=== PATIENT | male | born 1950 | race Asian ===

== ENCOUNTER 2018-08-17 12:33 | Emergency (ER) | payer OTHER ==
[2018-08-17] MEDS ORDERED: SODIUM CHLORIDE 1,000 ML IV SCH (12:45)
[2018-08-17 13:01] VITALS: TEMP 98.3; BMI 36.0
[2018-08-17 13:14] LABS: BASO % 1.3 % (0-2.0); EOS % 4.2 % (0-4.5); HEMATOCRIT 44.3 % (35.4-49); HEMOGLOBIN 14.7 GM/dL (11.7-16.9); LYMPH % 30.9 % (8-40); MCH 25.6 pg (25.7-33.7); MCHC 33.1 g/dl (32.0-35.9); MEAN CELL VOLUME 77.2 fl (80-96); MEAN PLT VOLUME 9.2 fl (7.5-11.1); MONO % 9.4 % (3.8-10.2); NEUT % 54.2 % (42.8-82.8); PLATELET COUNT 242 K/MM3 (134-434); RBC 5.73 M/mm3 (4.00-5.60); RDW 14.4 % (11.9-15.9); WHITE BLOOD COUNT 5.2 K/mm3 (4.0-10.0)
[2018-08-17] MEDS ORDERED: NICARDIPINE 25 MG in DEXTROSE 5%-WATER - 240 ML IVPB SCH (13:15)
[2018-08-17 13:28] LABS: PROTHROMBIN TIME (PATIENT) 11.8 SEC (9.7-13.0)
[2018-08-17 13:41] LABS: ALBUMIN 3.5 g/dl (3.4-5.0); ALK PHOS 52 U/L (45-117); ANION GAP 7 MMOL/L (8-16); BILIRUBIN,TOTAL 0.7 mg/dL (0.2-1); BLOOD UREA NITROGEN 13.7 mg/dL (7-18); CALCIUM 8.9 mg/dL (8.5-10.1); CHLORIDE 107 mmol/L (98-107); CHOLESTEROL 161 mg/dL (50-200); CO2 25 mmol/L (21-32); CREATININE 1.1 mg/dL (0.55-1.3); GLUCOSE,RANDOM 251 mg/dL (74-106); HDL CHOLESTEROL 46 mg/dL (40-60); POTASSIUM 4.2 mmol/L (3.5-5.1); SGOT/AST 12 U/L (15-37); SGPT/ALT 19 U/L (13-61); SODIUM 139 mmol/L (136-145); TOT PROT 7.8 g/dl (6.4-8.2); TRIGLYCERIDES 116 mg/dL (0-150)
[2018-08-17 13:54] VITALS: BP 197/95; PULSE 74
--- NOTE | 2018-08-17 13:58 | PDOC ---
Documentation entered by Kerry Haynes SCRIBE, acting as scribe for Tomasz Finley MD. Tomasz Finley MD: This documentation has been prepared by the [place] hoover Sammi, SCRIBE, under my direction and personally reviewed by me in its entirety. I confirm that the documentation accurately reflects all work, treatment, procedures, and medical decision making performed by me. History of Present Illness - General Stated Complaint: CVA/TIA Time Seen by Provider: 08/17/18 12:37 - History of Present Illness Initial Comments: 08/17/18 12:50 The patient is a 67 year old male, with a significant PMH of HTN, IDDM, HLD, on baby aspirin, who was BIBA to the emergency department for evaluation of stroke signs. The patient reports he went to sleep at 11pm last night and was at his baseline. He notes he woke up this morning and everything was "confusing." The patient's coworker at bedside states she called the patient at 11am this morning and noticed he was slurring his speech. The coworker went to check on the patient and found him on the ground prompting her to call 911. Pt denies weakness on either side of his body. Denies headache, cp, sob, fevers, chills, abd pain, N/V/D, abd pain, LE edema. 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 FS in the field 290, BP 210/110 per EMS. Past History - Past Medical History Allergies/Adverse Reactions: Allergies Allergy/AdvReac Type Severity Reaction Status Date / Time No Known Allergies Allergy Verified 08/17/18 12:49 Home Medications: Ambulatory Orders NK [No Known Home Medication] 08/17/18 Review of Systems - Review of Systems Comments:: 08/17/18 12:54 GENERAL/CONSTITUTIONAL: No fever or chills. No weakness. HEAD, EYES, EARS, NOSE AND THROAT: No change in vision. No ear pain or discharge. No sore throat. GASTROINTESTINAL: No nausea, vomiting, diarrhea or constipation. GENITOURINARY: No dysuria, frequency, or change in urination. CARDIOVASCULAR: No chest pain or shortness of breath. RESPIRATORY: No cough, wheezing, or hemoptysis. MUSCULOSKELETAL: No joint or muscle swelling or pain. No neck or back pain. SKIN: No rash NEUROLOGIC: (+)weakness (+)slurred speech ENDOCRINE: No increased thirst. No abnormal weight change. HEMATOLOGIC/LYMPHATIC: No anemia, easy bleeding, or history of blood clots. ALLERGIC/IMMUNOLOGIC: No hives or skin allergy. *Physical Exam - Vital Signs Last Vital Signs Temp Pulse Resp BP Pulse Ox 98.3 F 66 20 201/87 H 96 08/17/18 12:58 08/17/18 13:35 08/17/18 12:58 08/17/18 13:35 08/17/18 12:58 - Physical Exam Comments: 08/17/18 12:54 GENERAL: Awake, alert, oriented to name and hospital but states year is 1988, in no acute distress HEAD: No signs of trauma EYES: PERRLA, EOMI, sclera anicteric, conjunctiva clear ENT: +hearing impairment, nares patent, oropharynx clear without exudates. Moist mucosa NECK: Normal ROM, supple, no lymphadenopathy, JVD, or masses LUNGS: Breath sounds equal, clear to auscultation bilaterally. No wheezes, and no crackles HEART: Regular rate and rhythm, normal S1 and S2, no murmurs, rubs or gallops ABDOMEN: Soft, nontender, normoactive bowel sounds. No guarding, no rebound. No masses EXTREMITIES: Normal range of motion, no edema. No clubbing or cyanosis. No cords , erythema, or tenderness. WWP. BACK: No midline spinal tenderness in cervical/thoracic/lumbar region NEUROLOGICAL: (+)slurred speech (+)Right facial droop (+)R pronator drift (+)4/ 5 strength right upper extremity (+)4+ right lower extremity strength, normal sensation. Gait deferred. SKIN: Warm, Dry, normal turgor, no rashes or lesions noted. NIH Stroke Scale - Last Known Well Date/Time & Onset Date Last Known Well: 08/16/18 Time Last Known Well: 23:00 - Initial Evaluation Level of consciousness: Alert Ask patient the month and their age: Answers one correctly Ask patient to open & close eyes; make fist and let go: Obeys both correctly Best gaze (horizontal eye movement): Normal Visual field testing: No visual field loss Facial paresis (Show teeth/raise eyebrows/close eyes tight): Complete paralysis of one or both sides (Upper and lower face) Motor Function: Left Arm: Normal Motor Function: Right Arm: Some effort against gravity Motor Function: Left Leg: Normal (extends leg 30 degrees for 5 seconds without drift) Motor Function: Right Leg: Some effort against gravity Limb Ataxia: Untestable (Joint fused or limb amputated), explain: Sensory(Use pinprick test arms,legs,trunk,face/side to side): Normal Best language (Describe picture, name items, read sentences): Mild to moderate aphasia Dysarthria (read several words): Mild to moderate slurring of words Extinction and Inattention: No abnormality - Total Score NIH Stroke Scale Score: 10 Critical Care Time/MDM Note Total Critical Care Time: 80 Critical Care Statement: The care of this patient involved high complexity decision making to prevent further life threatening deterioration of the patient 's condition and/or to evaluate & treat vital organ system(s) failure or risk of failure. - Medical Decision Making Note: 08/17/18 13:[address] Monroy at [facility] for ER to ER transfer. 08/17/18 13:48 67yo M hx HTN, HL, IDDM, on ASA 81mg presents to the ED with slurred speech, R sided facial droop, RUE and RLE weakness since waking up this morning LKN 11pm when he went to bed Out of TPA window NIHSS 10 CTH with intraparanchymal bleed BP 200/100, HR 60s Cardene gtt started Case discussed with neuro fellow at [facility], pt accepted for transfer to Dr. Jeter Case discussed with ED attedning Dr. Sutton as well as pt is ED to ED transfer 08/17/18 13:52 EMS team transporting pt to [facility] *DC/Admit/Observation/Transfer Diagnosis at time of Disposition: Cerebrovascular accident (CVA), Spontaneous intraparenchymal intracranial hemorrhage, acute, Right sided weakness - Discharge Dispostion Disposition: TRANSFER ACUTE CARE/OTHER HOSP Condition at time of disposition: Guarded - Referrals - Patient Instructions - Post Discharge Activity - Attestations Physician Attestion: 08/17/18 14:00 I, Dr. Tomasz Finley MD, attest that this document has been prepared under my direction and personally reviewed by me in its entirety. I further attest, that it accurately reflects all work, treatment, procedures and medical decision -making performed by me.
--- NOTE | 2018-08-17 14:50 | EKG ---
Test Reason : Blood Pressure : / mmHG Vent. Rate : 068 BPM Atrial Rate : 068 BPM P-R Int : 126 ms QRS Dur : 096 ms QT Int : 394 ms P-R-T Axes : 043 -39 024 degrees QTc Int : 418 ms NORMAL SINUS RHYTHM LEFT AXIS DEVIATION VOLTAGE CRITERIA FOR LEFT VENTRICULAR HYPERTROPHY NONSPECIFIC ST ABNORMALITY ABNORMAL ECG NO PREVIOUS ECGS AVAILABLE Confirmed by SANJAY GRIFFIN MD ([id number]) on 08/17/2018 2:50:04 PM Referred By: Confirmed By:SANJAY GRIFFIN MD
== END 2018-08-17 14:01 | disposition short-term general hospital (02) ==
LOC: JER 12:33
DX: I61.8 Other nontraumatic intracerebral hemorrhage (principal); M62.81 Muscle weakness (generalized); I63.9 Cerebral infarction, unspecified; I10 Essential (primary) hypertension; E11.9 Type 2 diabetes mellitus without complications; E78.5 Hyperlipidemia, unspecified
CPT/HCPCS: 36415; 70450-TC; 71045-TC-FY; 72125-TC; 80053; 82465; 82550; 83718; 83721; 84478; 84484; 85025; 85610; 86850; 86900; 86901; 93005; 93010; 99285-25; J7030

== ENCOUNTER 2020-02-02 13:43 | Inpatient (IN) | payer OTHER ==
[2020-02-02] MEDS ORDERED: SODIUM CHLORIDE 1,000 ML IV SCH (14:00)
[2020-02-02 15:42] LABS: BASO % 0.8 % (0-2.0); EOS % 4.6 % (0-4.5); HEMATOCRIT 47.2 % (35.4-49); HEMOGLOBIN 15.5 GM/dL (11.7-16.9); LYMPH % 35.3 % (8-40); MCHC 32.8 g/dl (32.0-35.9); MEAN PLT VOLUME 9.8 fl (7.5-11.1); MONO % 11.2 % (3.8-10.2); NEUT % 48.1 % (42.8-82.8); PLATELET COUNT 235 K/MM3 (134-434); RDW 16.7 % (11.9-15.9)
[2020-02-02 15:48] LABS: INR 1.03 (0.83-1.09); PROTHROMBIN TIME (PATIENT) 12.7 SEC (9.7-13.0)
[2020-02-02 15:51] LABS: ACTIVATED PTT 31.1 SECONDS (25.2-36.5)
[2020-02-02 15:56] LABS: CHLORIDE 107 mmol/L (98-107); SODIUM 140 mmol/L (136-145)
[2020-02-02 15:58] LABS: CALCIUM 9.3 mg/dL (8.5-10.1)
[2020-02-02 15:59] LABS: ALBUMIN 3.6 g/dl (3.4-5.0); ANION GAP 6 MMOL/L (8-16); CO2 27 mmol/L (21-32); GLUCOSE,RANDOM 123 mg/dL (74-106)
[2020-02-02 16:01] LABS: CHOLESTEROL 166 mg/dL (50-200); TRIGLYCERIDES 96 mg/dL (0-150)
[2020-02-02 16:02] LABS: BILIRUBIN,TOTAL 0.9 mg/dL (0.2-1); CREATININE 1.1 mg/dL (0.55-1.3); LDL CHOLESTEROL (ONLY SJRH) 97 mg/dL (5-100); SGOT/AST 25 U/L (15-37); SGPT/ALT 29 U/L (13-61); TOT PROT 7.9 g/dl (6.4-8.2)
[2020-02-02 16:04] LABS: HDL CHOLESTEROL 53 mg/dL (40-60)
[2020-02-02 16:05] LABS: ALK PHOS 51 U/L (45-117)
[2020-02-02 17:01] LABS: EPI CELLS 24 /uL (0-25.1); HYALINE CASTS 2 /uL (0-3.1); PH,URINE 5.5 (5.0-8.0); URINE APPEARANCE CLEAR; URINE BACTERIA 24 /uL (0-1359); URINE BILIRUBIN NEGATIVE (NEGATIVE); URINE COLOR YELLOW; URINE GLUCOSE (UA) 3+ (NEGATIVE); URINE KETONE TRACE (NEGATIVE); URINE LEUK ESTERASE NEGATIVE (NEGATIVE); URINE NITRITE NEGATIVE (NEGATIVE); URINE PROTEIN 2+ (NEGATIVE); URINE RBC 5 /uL (0-23.9); URINE WBC 43 /uL (0-25.8)
[2020-02-02] MEDS ORDERED: ASPIRIN COATED 81 MG TABLET.EC ONE (21:04)
[2020-02-02] MEDS ORDERED: LOSARTAN POTASSIUM 50 MG TABLET ONE (21:05)
[2020-02-02] MEDS: ASPIRIN 81 MG CHEWABLE TABLETS PO SCH (21:07)
[2020-02-02] MEDS: LOSARTAN POTASSIUM 50 MG TABLET PO SCH (21:07)
[2020-02-02] MEDS ORDERED: ATORVASTATIN CA 20 MG TABLET (FP) PO SCH (22:00)
[2020-02-02] MEDS ORDERED: GABAPENTIN 300 MG CAPSULE PO SCH (22:00)
[2020-02-02] MEDS ORDERED: ATORVASTATIN CA 20 MG TABLET (FP) ONE (22:09)
[2020-02-02] MEDS ORDERED: GABAPENTIN 100 MG CAPSULE ONE (22:10)
[2020-02-02] MEDS: GABAPENTIN 300 MG CAPSULE PO SCH (23:06)
[2020-02-02] MEDS: INSULIN SLIDING SCALE (NOVOLOG) 1 VIAL SQ SCH (23:06)
[2020-02-02] MEDS: TIZANIDINE HCL 4 MG TABLET PO SCH (23:06)
[2020-02-03 01:26] VITALS: BMI 27.0
[2020-02-03 06:41] LABS: BASO % 1.1 % (0-2.0); EOS % 6.2 % (0-4.5); HEMATOCRIT 44.2 % (35.4-49); HEMOGLOBIN 14.6 GM/dL (11.7-16.9); LYMPH % 40.8 % (8-40); MCHC 32.9 g/dl (32.0-35.9); MEAN CELL VOLUME 75.9 fl (80-96); MEAN PLT VOLUME 9.4 fl (7.5-11.1); MONO % 10.6 % (3.8-10.2); NEUT % 41.3 % (42.8-82.8); PLATELET COUNT 233 K/MM3 (134-434); RBC 5.82 M/mm3 (4.00-5.60); RDW 16.4 % (11.9-15.9); WHITE BLOOD COUNT 6.1 K/mm3 (4.0-10.0)
[2020-02-03] MEDS: INSULIN SLIDING SCALE (NOVOLOG) 1 VIAL SQ SCH ×4 (06:47→21:46)
[2020-02-03 07:03] LABS: CALCIUM 8.5 mg/dL (8.5-10.1)
[2020-02-03 07:04] LABS: ALBUMIN 3.1 g/dl (3.4-5.0); MAGNESIUM 1.6 mg/dL (1.8-2.4)
[2020-02-03 07:06] LABS: PHOSPHOROUS 3.4 mg/dL (2.5-4.9)
[2020-02-03 07:07] LABS: CREATININE 1.1 mg/dL (0.55-1.3)
[2020-02-03 07:08] LABS: BILIRUBIN,TOTAL 1.5 mg/dL (0.2-1); TOT PROT 6.7 g/dl (6.4-8.2)
[2020-02-03] MEDS: ENOXAPARIN NA (PORCINE) 40 MG/0.4 ML DISP.SYRIN SQ SCH (09:31)
[2020-02-03] MEDS: LOSARTAN POTASSIUM 50 MG TABLET PO SCH (09:31)
[2020-02-03] MEDS: ASPIRIN 81 MG CHEWABLE TABLETS PO SCH (09:31)
[2020-02-03] MEDS ORDERED: PT OWN MED DRAWER 7, Y5N ONE ×2 (12:01→21:45)
[2020-02-03] MEDS ORDERED: MAGNESIUM SULF 50% (8.12 MEQ/2 ML-1 GM VIAL) IVPB ONE (14:17)
[2020-02-03] MEDS: amLODIPine BESYLATE 5 MG TABLET (FP) PO SCH (15:19)
[2020-02-03] MEDS: GABAPENTIN 300 MG CAPSULE PO SCH (21:46)
[2020-02-03] MEDS: ATORVASTATIN CA 80 MG TABLET (FP) PO SCH (21:46)
[2020-02-03] MEDS: TIZANIDINE HCL 4 MG TABLET PO SCH (21:46)
[2020-02-04] MEDS: INSULIN SLIDING SCALE (NOVOLOG) 1 VIAL SQ SCH ×5 (06:15→21:56)
[2020-02-04] MEDS: LOSARTAN POTASSIUM 50 MG TABLET PO SCH (09:16)
[2020-02-04] MEDS: ASPIRIN 81 MG CHEWABLE TABLETS PO SCH (09:16)
[2020-02-04] MEDS: amLODIPine BESYLATE 5 MG TABLET (FP) PO SCH (09:17)
[2020-02-04] MEDS: ENOXAPARIN NA (PORCINE) 40 MG/0.4 ML DISP.SYRIN SQ SCH (09:17)
[2020-02-04] MEDS: CLOPIDOGREL BISULFATE 75 MG TABLET (FP) PO SCH (12:24)
[2020-02-04] MEDS: metFORMIN HCL 500 MG TABLET (FP) PO SCH ×2 (12:24→17:32)
[2020-02-04] MEDS: ATORVASTATIN CA 80 MG TABLET (FP) PO SCH (21:44)
[2020-02-04] MEDS: GABAPENTIN 300 MG CAPSULE PO SCH (21:44)
[2020-02-04] MEDS: TIZANIDINE HCL 4 MG TABLET PO SCH (21:53)
[2020-02-05] MEDS: INSULIN SLIDING SCALE (NOVOLOG) 1 VIAL SQ SCH ×4 (06:49→21:49)
[2020-02-05] MEDS: metFORMIN HCL 500 MG TABLET (FP) PO SCH ×2 (06:50→16:45)
[2020-02-05] MEDS: amLODIPine BESYLATE 5 MG TABLET (FP) PO SCH (09:06)
[2020-02-05] MEDS: CLOPIDOGREL BISULFATE 75 MG TABLET (FP) PO SCH (09:06)
[2020-02-05] MEDS: ENOXAPARIN NA (PORCINE) 40 MG/0.4 ML DISP.SYRIN SQ SCH (09:06)
[2020-02-05] MEDS: LOSARTAN POTASSIUM 50 MG TABLET PO SCH (09:07)
[2020-02-05] MEDS: ATORVASTATIN CA 80 MG TABLET (FP) PO SCH (21:48)
[2020-02-05] MEDS: GABAPENTIN 300 MG CAPSULE PO SCH (21:48)
[2020-02-05] MEDS: TIZANIDINE HCL 4 MG TABLET PO SCH (21:49)
[2020-02-05] MEDS ORDERED: amLODIPine BESYLATE 5 MG TABLET (FP) PO ONE (23:15)
[2020-02-06] MEDS: metFORMIN HCL 500 MG TABLET (FP) PO SCH (06:48)
[2020-02-06] MEDS: INSULIN SLIDING SCALE (NOVOLOG) 1 VIAL SQ SCH ×2 (06:48→10:52)
[2020-02-06] MEDS: CLOPIDOGREL BISULFATE 75 MG TABLET (FP) PO SCH (09:00)
[2020-02-06] MEDS: LOSARTAN POTASSIUM 50 MG TABLET PO SCH (09:00)
[2020-02-06] MEDS: ENOXAPARIN NA (PORCINE) 40 MG/0.4 ML DISP.SYRIN SQ SCH (09:00)
[2020-02-06 09:39] VITALS: BP 152/94; PULSE 88; TEMP 98
[2020-02-06] MEDS ORDERED: amLODIPine BESYLATE 10 MG TABLET (FP) PO SCH (10:00)
== END 2020-02-06 14:33 | DRG 65 ==
LOC: JER 13:43 → JERBED 14:42 → J4S 22:07
PROVIDERS: ADMIT Internal Medicine; ATTEND Family Medicine
DX: I63.9 Cerebral infarction, unspecified (principal); I69.351 Hemiplegia and hemiparesis following cerebral infarction affecting right dominant side; J98.11 Atelectasis; R29.702 NIHSS score 2; E11.9 Type 2 diabetes mellitus without complications; I10 Essential (primary) hypertension; E66.9 Obesity, unspecified; Z68.27 Body mass index [BMI] 27.0-27.9, adult; E78.5 Hyperlipidemia, unspecified; H91.90 Unspecified hearing loss, unspecified ear; M47.816 Spondylosis without myelopathy or radiculopathy, lumbar region; M50.30 Other cervical disc degeneration, unspecified cervical region; W18.30XA Fall on same level, unspecified, initial encounter; Y92.89 Other specified places as the place of occurrence of the external cause; Y99.8 Other external cause status
CPT/HCPCS: 36415; 70450-TC; 70551-TC; 71045-TC-FY; 72141-TC; 80053; 80061; 81003; 82550; 82962; 83036; 83721; 83735; 84100; 84484; 85025; 85610; 85730; 86850; 86900; 86901; 93005; 93010; 93880-TC; 97116-GP; 97161-GP; 99285-25; C9803; U0003

== ENCOUNTER 2020-06-26 14:04 | Emergency (ER) | payer OTHER ==
[2020-06-26 14:12] VITALS: TEMP 98; BMI 31.3
[2020-06-26] MEDS ORDERED: LOSARTAN POTASSIUM 50 MG TABLET PO ONE (14:46)
[2020-06-26] MEDS ORDERED: METOCLOPRAMIDE HCL INJECTION 10 MG/2 ML VIAL IVPB ONE (14:46)
[2020-06-26] MEDS ORDERED: ACETAMINOPHEN 1000 MG/100 ML VIAL (NON FORMULARY) IVPB ONE (14:46)
[2020-06-26 14:59] LABS: BASO % 1.7 % (0-2.0); EOS % 2.6 % (0-4.5); HEMATOCRIT 39.7 % (35.4-49); HEMOGLOBIN 13.1 GM/dL (11.7-16.9); MCH 27.1 pg (25.7-33.7); MEAN CELL VOLUME 82.1 fl (80-96); MEAN PLT VOLUME 9.6 fl (7.5-11.1); MONO % 10.6 % (3.8-10.2); NEUT % 44.1 % (42.8-82.8); PLATELET COUNT 229 K/MM3 (134-434); RBC 4.84 M/mm3 (4.00-5.60); RDW 14.1 % (11.9-15.9); WHITE BLOOD COUNT 6.6 K/mm3 (4.0-10.0)
[2020-06-26] MEDS ORDERED: LOSARTAN POTASSIUM 50 MG TABLET ONE (15:15)
[2020-06-26] MEDS ORDERED: ACETAMINOPHEN INJECTION 100 ML IVPB ONE (15:22)
[2020-06-26] MEDS ORDERED: METOCLOPRAMIDE HCL INJECTION 10 MG/2 ML VIAL ONE (15:22)
[2020-06-26 15:23] LABS: CHLORIDE 104 mmol/L (98-107); SODIUM 135 mmol/L (136-145)
[2020-06-26 15:24] LABS: ALBUMIN 3.2 g/dl (3.4-5.0); ANION GAP 4 MMOL/L (8-16); BLOOD UREA NITROGEN 20.1 mg/dL (7-18); CALCIUM 8.8 mg/dL (8.5-10.1); CO2 27 mmol/L (21-32)
[2020-06-26 15:25] LABS: GLUCOSE,RANDOM 202 mg/dL (74-106)
[2020-06-26 15:28] LABS: CREATININE 1.1 mg/dL (0.55-1.3); SGOT/AST 35 U/L (15-37); SGPT/ALT 25 U/L (13-61)
[2020-06-26 15:29] LABS: BILIRUBIN,TOTAL 0.7 mg/dL (0.2-1); TOT PROT 7.3 g/dl (6.4-8.2)
[2020-06-26 15:30] LABS: ALK PHOS 52 U/L (45-117)
[2020-06-26 16:56] VITALS: BP 173/80; PULSE 57
[2020-06-26 17:23] LABS: PH,URINE 7.5 (5.0-8.0); URINE APPEARANCE CLEAR; URINE BILIRUBIN NEGATIVE (NEGATIVE); URINE COLOR YELLOW; URINE GLUCOSE (UA) NEGATIVE (NEGATIVE); URINE KETONE NEGATIVE (NEGATIVE); URINE LEUK ESTERASE NEGATIVE (NEGATIVE); URINE NITRITE NEGATIVE (NEGATIVE); URINE PROTEIN NEGATIVE (NEGATIVE); URINE UROBILINOGEN 0.2 mg/dL (0.2-1.0)
== END 2020-06-26 18:26 | disposition home or self-care (01) ==
LOC: JER 14:04
PROC: 3E0333Z Introduction of Anti-inflammatory into Peripheral Vein, Percutaneous Approach (ICD-10-PCS; principal; 2020-06-26)
PROC: 3E033GC Introduction of Other Therapeutic Substance into Peripheral Vein, Percutaneous Approach (ICD-10-PCS; 2020-06-26)
DX: R51.9 Headache, unspecified (principal); I10 Essential (primary) hypertension
CPT/HCPCS: 36415; 70450-TC; 71045-TC-FY; 80053; 81003; 82550; 84484; 85025; 87086; 93005; 93010; 99285-25; J0131

== ENCOUNTER 2024-04-11 12:58 | Emergency (ER) | payer OTHER ==
[2024-04-11 13:23] VITALS: TEMP 98.1; BMI 28.7
[2024-04-11] MEDS: ACETAMINOPHEN 1000 MG/100 ML BAG IVPB ONE (14:02)
[2024-04-11] MEDS: LIDOCAINE 5% TOPICAL PATCH TP ONE (14:02)
[2024-04-11] MEDS ORDERED: ACETAMINOPHEN INJECTION 100 ML ONE (14:06)
[2024-04-11 14:07] LABS: BASO % 0.7 % (0-2.0); EOS % 3.5 % (0-4.5); HEMATOCRIT 46.1 % (35.4-49); HEMOGLOBIN 15.8 GM/dL (11.7-16.9); LYMPH % 42.1 % (8-40); MCH 27.7 pg (25.7-33.7); MCHC 34.3 g/dl (32.0-35.9); MEAN CELL VOLUME 80.8 fl (80-96); MEAN PLT VOLUME 9.2 fl (7.5-11.1); MONO % 10.6 % (3.8-10.2); NEUT % 43.1 % (42.8-82.8); PLATELET COUNT 214 10^3/uL (134-434); RBC 5.71 M/mm3 (4.00-5.60); RDW 14.3 % (11.9-15.9); WHITE BLOOD COUNT 5.8 K/mm3 (4.0-10.0)
[2024-04-11] MEDS ORDERED: LIDOCAINE 5% TOPICAL PATCH ONE (14:07)
[2024-04-11 14:13] LABS: INR 1.13 (0.83-1.09); PROTHROMBIN TIME (PATIENT) 12.4 SEC (9.7-13.0)
[2024-04-11 14:27] LABS: ALBUMIN 3.5 g/dl (3.4-5.0); BLOOD UREA NITROGEN 19.5 mg/dL (7-18); CALCIUM 9.1 mg/dL (8.5-10.1)
[2024-04-11 14:31] LABS: CREATININE 1.3 mg/dL (0.55-1.3)
[2024-04-11 14:32] LABS: BILIRUBIN,TOTAL 1.5 mg/dL (0.2-1)
[2024-04-11 17:01] VITALS: BP 126/82; PULSE 72; RESP 18
[2024-04-11] MEDS ORDERED: LIDOCAINE PATCH REMOVAL MC SCH (22:00)
== END 2024-04-11 17:19 | disposition home or self-care (01) ==
LOC: JER 12:58
PROC: 3E033NZ Introduction of Analgesics, Hypnotics, Sedatives into Peripheral Vein, Percutaneous Approach (ICD-10-PCS; principal; 2024-04-11)
DX: R07.81 Pleurodynia (principal); R06.09 Other forms of dyspnea; M79.661 Pain in right lower leg
CPT/HCPCS: 0241U-QW; 36415; 71275-TC; 80053; 82962; 83880; 84484; 85025; 85610; 85730; 86850; 86900; 86901; 93005; 93010; 93970-TC; 99285-25; J0131; Q9967